=== PATIENT | female | born 1990 ===

== ENCOUNTER 2020-10-02 17:50 | Emergency (ER) | payer SELFPAY ==
[2020-10-02] MEDS ORDERED: IBUPROFEN 600 MG TAB PO ONE ×2 (17:59→18:09)
[2020-10-02 19:51] LABS: HCG Qualitative,Urine Negative (Negative)
[2020-10-02 19:54] LABS: Bilirubin,Urine NEG (Negative); Blood,Urine MOD (Negative); Color,Urine Yellow (Yellow); Urobilinogen,Urine < 2.0 mg/dL (<2.0)
[2020-10-02 19:55] LABS: WBC,Urine > 182.0 /HPF (0.0-6.0)
[2020-10-02] MEDS ORDERED: SODIUM CHLORIDE 0.9% 1000 ML 2,000 ML IV ONE (20:58)
[2020-10-02] MEDS ORDERED: cefTRIAXone/NS 1 GM/50 ML 1 GM/50 ML BAG IV ONE (21:03)
--- NOTE | 2020-10-02 21:04 | Emergency Department Report ---
ED Female HPI - General Chief complaint: Urogenital-Female Stated complaint: BACK PAIN Time Seen by Provider: 10/02/20 20:55 Source: patient Mode of arrival: Ambulatory Limitations: No Limitations - History of Present Illness Initial comments: The patient was evaluated in the emergency department for symptoms described in the history of present illness. He/she was evaluated in the context of the global COVID-19 pandemic, which necessitated consideration that the patient might be at risk for infection with the virus that causes COVID-19. Institu tional protocols and algorithms that pertain to the evaluation of patients at risk for COVID-19 are in a state of rapid change based on information released by regulatory bodies including the CDC and federal and state organizations. These policies and algorithms were followed during the patient's care in the emergency department. Please note that these policies, procedures and recommendations changed on a rapid basis. 30-year-old female presents to the emergency room for 2-week history of right upper quadrant pain fever dark urine nausea but no vomiting. Patient states that she was treated in April for urinary tract infection. Patient denies any dysuria hematuria vaginal discharge. It was noted that patient had an elevated temperature of 101.4. She was mildly tacky at 100. Onset/Timin -: week(s) Severity scale (0 -10): 9 Quality: sharp Consistency: constant Improves with: none Are you Now?: No Associated Symptoms: nausea/vomiting (No vomiting), fever/chills. denies: vaginal discharge, vaginal bleeding, loss of appetite, dysuria, hematuria - Related Data Allergies Allergy/AdvReac Type Severity Reaction Status Date / Time No Known Allergies Allergy Unverified 10/02/20 18:04 ED Review of Systems ROS: Stated complaint: BACK PAIN Other details as noted in HPI Comment: All other systems reviewed and negative ED Past Medical Hx - Past Medical History Previous Medical History?: No - Surgical History Past Surgical History?: No ED Physical Exam - General Limitations: No Limitations General appearance: alert, in distress - Head Head exam: Present: atraumatic, normocephalic - Eye Eye exam: Present: normal appearance, PERRL - ENT ENT exam: Present: mucous membranes moist - Neck Neck exam: Present: normal inspection, full ROM - Respiratory Respiratory exam: Absent: accessory muscle use - Cardiovascular Cardiovascular Exam: Present: tachycardia - GI/Abdominal GI/Abdominal exam: Present: soft, tenderness, guarding - Back Exam Back exam: Present: CVA tenderness (R) - Neurological Exam Neurological exam: Present: alert, oriented X3 - Psychiatric Psychiatric exam: Present: normal affect, normal mood - Skin Skin exam: Present: warm, dry, intact, normal color. Absent: rash ED Course Vital Signs 10/02/20 10/03/20 18:04 01:34 Temperature 101.4 F H 102.9 F H Pulse Rate 100 H 103 H Respiratory 18 17 Rate Blood Pressure 133/58 133/72 [Right] O2 Sat by Pulse 98 98 Oximetry - Reevaluation(s) Reevaluation #1: 10/03/20 01:34 Call was placed to [facility] that they are currently on MedSurg and ICU diversion. Call placed to either [facility] or [facility]. Reevaluation #3: 10/03/20 01:42 Chest informed that [facility] and [facility] are on diversion as well. Will reach out to [facility]. - Consultations Consultation #1: 10/03/20 02:[address] Dowell at [facility] he is has accepted ER to ER. 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 abd pain with nausea and fever. TECHNIQUE: Axial CT imaging of abdomen and pelvis was obtained with IV cont rast. Coronal and sagittal reformatted imaging obtained and reviewed. All CT scans at this location are performed using CT dose reduction for ALARA by means of automated exposure control. COMPARISON: None available. FINDINGS: CT abdomen with contrast demonstrates grossly normal appearance of the liver, spleen, pancreas, left kidney, and adrenal glands. Gallbladder appearance is unremarkable. No biliary dilatation. The right kidney is markedly enlarged. There is a staghorn calculus within the renal pelvis causing severe hydronephrosis. Calculus measures approximately 3 cm. There are additional smaller calculi throughout the lower pole calyces. No calculi are seen within the right ureter. There is mild inflammatory change surrounding the right renal hilum. CT pelvis with contrast does not demonstrate any mass, free fluid, or focal inflammatory change. IUD is present within the uterus and appears unremarkable. GI tract is within normal limits. Visualized lung bases are clear. No acute osseous abnormality. IMPRESSION: 1. Severe right hydronephrosis caused by a staghorn calculus. Additional smaller calculi are seen within the right kidney. Although rare, x anthogranulomatous pyelonephritis is within the differential. Signer Name: Myla Erickson MD Signed: 10/02/2020 11:33 PM Workstation Name: [id number] - Medical Decision Making 30-year-old female presents to the emergency room for 2-week history of right upper quadrant pain fever dark urine nausea but no vomiting. Patient states that she was treated in April for urinary tract infection. Patient denies any dysuria hematuria vaginal discharge. It was noted that patient had an elevated temperature of 101.4. She was mildly tacky at 100. It was noted that patient had elevated WBCs of greater than 182 and urine. 100 protein, large amount of leukoesterase. CT scan was ordered shows that patient has a right hydronephrosis from a staghorn calculi with multiple calculi in the right kidney as well as the left kidney. Spoke to my attending Dr. Woodall. He recommends the patient be transferred out to the appropriate hospital with a urologist. This provider has had to call 5 hospitals which were all on diversion and spoke to [facility] Dr. Dowell and he has accepted patient to ER to ER. Paperwork was provided to nursing staff Dr. Pollard signed transfer paper. Request for CT scanning to be placed on this. Ordered another round of normal saline which were equal 3 L, Rocephin 1 g IV, patient's had ibuprofen, acetaminophen and now will be given Dilaudid 0.5 and Toradol 30 mg for pain management. Critical Care Time: Yes Critical care time in (mins) excluding proc time.: 35 Critical care attestation.: If time is entered above; I have spent that time in minutes in the direct care of this critically ill patient, excluding procedure time. ED Disposition Clinical Impression: Pyelonephritis, Kidney calculi Hydronephrosis Qualifiers: Hydronephrosis type: with renal calculous obstruction Qualified Code(s): N13.2 - Hydronephrosis with renal and ureteral calculous obstruction Disposition: DC/TX-70 ANOTHER TYPE HLTHCARE Is pt being admited?: Yes Does the pt Need Aspirin: No Condition: Stable Instructions: Hydronephrosis Referrals: ROMERO MENJIVAR MD [Primary Care Provider] - 3-5 Days
[2020-10-02 21:46] LABS: Basophils % (Auto) 0.4 % (0.0-1.8); Eosinophils # (Auto) 0.1 K/mm3 (0.0-0.4); Eosinophils % (Auto) 0.9 % (0.0-4.3); Hemoglobin 9.8 gm/dl (10.1-14.3); Lymphocytes # (Auto) 1.3 K/mm3 (1.2-5.4); Lymphocytes % (Auto) 11.4 % (13.4-35.0); Mean Corpuscular HGB Conc 34 % (30-34); Mean Corpuscular Volume 82 fl (79-97); Monocytes # (Auto) 0.8 K/mm3 (0.0-0.8); Monocytes % (Auto) 7.6 % (0.0-7.3); Platelet Count 369 K/mm3 (140-440); Red Blood Count 3.55 M/mm3 (3.65-5.03); Red Cell Distribution Width 16.3 % (13.2-15.2)
[2020-10-02 21:58] LABS: Alanine Aminotransferase 17 units/L (7-56); Albumin 3.3 g/dL (3.9-5); BUN/Creatinine Ratio 14; Blood Urea Nitrogen 14 mg/dL (7-17); Calcium 8.9 mg/dL (8.4-10.2); Hemolysis Index 5
[2020-10-02] MEDS ORDERED: traMADol 50 MG TAB PO ONE (22:56)
[2020-10-02] MEDS ORDERED: MORPHINE 2 MG/1 ML INJ IV ONE (23:12)
--- NOTE | 2020-10-03 00:37 | Cat Scan Report ---
CT abdomen pelvis w con INDICATION / CLINICAL INFORMATION: Pt complains of R.U.Q. abd pain with nausea and fever. TECHNIQUE: Axial CT imaging of abdomen and pelvis was obtained with IV contrast. Coronal and sagittal reformatte d imaging obtained and reviewed. All CT scans at this location are performed using CT dose reduction for ALARA by means of automated exposure control. COMPARISON: None available. FINDINGS: CT abdomen with contrast demonstrates grossly normal appearance of the liver, spleen, pancreas, left kidney, and adrenal glands. Gallbladder appearance is unremarkable. No biliary dilatation. The right kidney is markedly enlarged. There is a staghorn calculus within the renal pelvis causing s evere hydronephrosis. Calculus measures approximately 3 cm. There are additional smaller calculi thro ughout the lower pole calyces. No calculi are seen within the right ureter. There is mild inflammator y change surrounding the right renal hilum. CT pelvis with contrast does not demonstrate any mass, free fluid, or focal inflammatory change. IUD is present within the uterus and appears unremarkable. GI tract is within normal limits. Visualized lung bases are clear. No acute osseous abnormality. IMPRESSION: 1. Severe right hydronephrosis caused by a staghorn calculus. Additional smaller calculi are seen wit hin the right kidney. Although rare, xanthogranulomatous pyelonephritis is within the differential. Signer Name: Myla Erickson MD Signed: 10/03/2020 12:33 AM Workstation Name: [id number]
[2020-10-03] MEDS ORDERED: ACETAMINOPHEN 325 MG TAB PO ONE (01:34)
[2020-10-03] MEDS ORDERED: HYDROmorphone 1 MG/1 ML INJ IV ONE ×2 (02:30→07:19)
[2020-10-03] MEDS ORDERED: SODIUM CHLORIDE 0.9% 1000 ML 1,000 ML IV ONE (02:30)
[2020-10-03] MEDS ORDERED: KETOROLAC 30 MG/1 ML INJ IV ONE (02:30)
[2020-10-03 07:03] VITALS: BP 105/64
== END 2020-10-03 07:35 | disposition other institution (70) ==
LOC: ED 17:50
DX: N12 Tubulo-interstitial nephritis, not specified as acute or chronic (principal); N13.2 Hydronephrosis with renal and ureteral calculous obstruction
CPT/HCPCS: 36415; 74177; 80053; 81001; 81025; 82140; 85025; 87040; 96361; 96365; 96375; 96376; 99291; J0696; J1170; J1885; J2270; J7030; Q9967

== ENCOUNTER 2020-10-05 22:29 | Emergency (ER) | payer SELFPAY ==
[2020-10-05 23:34] LABS: Alanine Aminotransferase 37 units/L (7-56); Albumin 3.3 g/dL (3.9-5); BUN/Creatinine Ratio 18; Basophils % (Auto) 0.4 % (0.0-1.8); Blood Urea Nitrogen 14 mg/dL (7-17); Calcium 9.2 mg/dL (8.4-10.2); Eosinophils # (Auto) 0.1 K/mm3 (0.0-0.4); Eosinophils % (Auto) 1.6 % (0.0-4.3); Hematocrit 31.2 % (30.3-42.9); Hemoglobin 10.2 gm/dl (10.1-14.3); Hemolysis Index 0; Lymphocytes # (Auto) 1.3 K/mm3 (1.2-5.4); Lymphocytes % (Auto) 14.7 % (13.4-35.0); Mean Corpuscular HGB Conc 33 % (30-34); Mean Corpuscular Volume 81 fl (79-97); Monocytes # (Auto) 0.8 K/mm3 (0.0-0.8); Monocytes % (Auto) 9.3 % (0.0-7.3); Platelet Count 448 K/mm3 (140-440); Red Blood Count 3.85 M/mm3 (3.65-5.03); Red Cell Distribution Width 16.3 % (13.2-15.2)
[2020-10-06 00:41] LABS: Bilirubin,Urine NEG (Negative); Blood,Urine MOD (Negative); Color,Urine Yellow (Yellow); Urobilinogen,Urine < 2.0 mg/dL (<2.0)
[2020-10-06 00:42] LABS: WBC,Urine > 182.0 /HPF (0.0-6.0)
[2020-10-06] MEDS ORDERED: IBUPROFEN 800 MG TAB ONE (03:15)
[2020-10-06] MEDS ORDERED: ONDANSETRON 4 MG ODT TAB ONE (03:15)
[2020-10-06] MEDS ORDERED: IBUPROFEN 800 MG TAB PO ONE (03:20)
[2020-10-06] MEDS ORDERED: ONDANSETRON 4 MG ODT TAB PO ONE (03:21)
[2020-10-06 06:49] VITALS: BP 111/72
[2020-10-06 07:03] LABS: HCG Qualitative,Urine Negative (Negative)
[2020-10-06] MEDS ORDERED: HYDROmorphone 1 MG/1 ML INJ IV ONE (07:10)
[2020-10-06] MEDS ORDERED: PANTOPRAZOLE 40 MG INJ IV ONE (07:11)
--- NOTE | 2020-10-06 07:11 | Emergency Department Report ---
ED General Adult HPI - General Chief complaint: Abdominal Pain Stated complaint: ABD PAIN PUI?: No Time Seen by Provider: 10/06/20 06:58 Source: patient, EMS (EMS documentation is reviewed and appreciated), RN notes reviewed, old records reviewed Mode of arrival: Wheelchair Limitations: No Limitations - History of Present Illness Initial comments: The patient was evaluated in the emergency department for symptoms described in the history of present illness. He/she was evaluated in the context of the global COVID-19 pandemic, which necessitated consideration that the patient might be at risk for infection with the virus that causes COVID-19. Institutional protocols and algorithms that pertain to the evaluation of patien ts at risk for COVID-19 are in a state of rapid change based on information released by regulatory bodies including the CDC and federal and state organizations. These policies and algorithms were followed during the patient's care in the emergency department. Please note that these policies, procedures and recommendations changed on a rapid basis. Patient is a 30-year-old female. She was recently seen at this hospital a few days ago for right-sided pyelonephritis, systemic inflammatory response syndrome, hydronephrosis, an obstructing staghorn calculus. Due to lack of urologic specialty services available at this facility, patient was transferred to [facility]. Patient reports to me that she had a stent placed in the right kidney. She thinks that she stayed overnight, and then was discharged. She was discharged with cefdinir. She has been taking her cefdinir. She has not been given a prescription for pain medication. She also reports a history of gastritis. She presents to the ER with a complaint of epigastric pain. This pain started on Wednesday. There is no headache, neck pain, chest pain. She also has persistent right flank pain. She has mild dysuria. No nausea or vomiting. No diarrhea. States that she is not . Pain is sharp. It increases with p alpation. It decreases with rest. Does not really move anywhere. During the history and physical examination, I am chaperoned by [employer] architect Aleyda Jain -: days(s) Location: abdomen Radiation: non-radiation Severity scale (0 -10): 10 Consistency: constant Improves with: medication, rest Worsens with: movement - Related Data Previous Rx's Medication Instructions Recorded Last Taken Type Acetaminophen [Non-Aspirin Extra 500 mg PO Q6HR PRN #30 tablet 10/06/20 Unknown Rx Strength] Amoxicillin/Potassium Clav 1 each PO BID #19 tablet 10/06/20 Unknown Rx [Augmentin 875-125 Tablet] Famotidine [Pepcid] 20 mg PO BID #60 tablet 10/06/20 Unknown Rx Morphine Sulfate [Morphine Sulfate 7.5 mg PO Q6HR PRN #10 tablet 10/06/20 Unknown Rx IR] Ondansetron [Zofran Odt] 4 mg PO Q8HR PRN #20 tab.rapdis 10/06/20 Unknown Rx Oxybutynin [Ditropan] 5 mg PO TID PRN #15 tab 10/06/20 Unknown Rx Allergies Allergy/AdvReac Type Severity Reaction Status Date / Time No Known Allergies Allergy Unverified 10/02/20 18:04 ED Review of Systems ROS: Stated complaint: ABD PAIN Other details as noted in HPI Constitutional: denies: fever Eyes: denies: eye discharge ENT: denies: epistaxis Respiratory: denies: cough Cardiovascular: denies: chest pain Gastrointestinal: abdominal pain Genitourinary: dysuria Musculoskeletal: back pain Skin: denies: lesions Neurological: weakness Hematological/Lymphatic: denies: easy bleeding ED Past Medical Hx - Social History Smoking Status: Never Smoker Substance Use Type: None - Medications Home Medications: Home Medications Medication Instructions Recorded Confirmed Last Taken Type Acetaminophen [Non-Aspirin Extra 500 mg PO Q6HR PRN #30 tablet 10/06/20 Unknown Rx Strength] Amoxicillin/Potassium Clav 1 each PO BID #19 tablet 10/06/20 Unknown Rx [Augmentin 875-125 Tablet] Famotidine [Pepcid] 20 mg PO BID #60 tablet 10/06/20 Unknown Rx Morphine Sulfate [Morphine Sulfate 7.5 mg PO Q6HR PRN #10 tablet 10/06/20 Unknown Rx IR] Ondansetron [Zofran Odt] 4 mg PO Q8HR PRN #20 tab.rapdis 10/06/20 Unknown Rx Oxybutynin [Ditropan] 5 mg PO TID PRN #15 tab 10/06/20 Unknown Rx ED Physical Exam - General Limitations: No Limitations General appearance: alert, in no apparent distress - Head Head exam: Present: atraumatic, normocephalic - Eye Eye exam: Present: normal appearance, EOMI. Absent: nystagmus - ENT ENT exam: Present: normal exam, normal orophraynx, mucous membranes moist, normal external ear exam - Neck Neck exam: Present: normal inspection, full ROM. Absent: tenderness, meningismus - Respiratory Respiratory exam: Present: normal lung sounds bilaterally. Absent: respiratory distress, wheezes, rales, rhonchi, stridor, decreased breath sounds - Cardiovascular Cardiovascular Exam: Present: regular rate, normal rhythm, normal heart sounds. Absent: bradycardia, tachycardia, irregular rhythm, systolic murmur, diastolic murmur, rubs, gallop - GI/Abdominal GI/Abdominal exam: Present: soft, tenderness, normal bowel sounds, other (There is epigastric tenderness. There is right flank tenderness.). Absent: distended, guarding, rebound, rigid, pulsatile mass - Extremities Exam Extremities exam: Present: normal inspection, full ROM, other (2+ pulses noted in the bilateral upper and lower extremities. There is no palpable cord. negative Homans sign. Muscular compartments are soft. The pelvis is stable.). Absent: pedal edema, calf tenderness - Back Exam Back exam: Present: normal inspection, CVA tenderness (R). Absent: tenderness, CVA tenderness (L), paraspinal tenderness, vertebral tenderness - Neurological Exam Neurological exam: Present: alert, other (No facial droop. Tongue midline. Extraocular movements intact bilaterally. Facial sensation intact to light touch in V1, V2, V3 distribution bilaterally. 5 and a 5 strength in 4 extremities. Sensation intact to light touch in 4 extremities.) - Psychiatric Psychiatric exam: Present: normal affect, normal mood - Skin Skin exam: Present: warm, dry, intact, normal color. Absent: rash ED Course Vital Signs 10/05/20 10/06/20 22:40 06:48 Temperature 99.3 F 98.0 F Pulse Rate 94 H 79 Respiratory 16 18 Rate Blood Pressure 128/72 111/72 [Right] O2 Sat by Pulse 99 99 Oximetry - Reevaluation(s) Reevaluation #1: 10/06/20 07:41 Differential diagnosis, including but not limited to: Gastritis, pancreatitis, ureteral spasm, pyelonephritis, stent obstruction, urinoma, stent colic Assessment and plan: 30-year-old female status post urologic stenting, with epigastric pain, and persistent right flank pain. Check basic laboratory studies, treat her pain, placed on monitor and storage bin tender and pulse ox, attempt to obtain old medical records, obtain CT scan of the abdomen pelvis with and without IV contrast, and reassess. Have discussed this plan of care with the patient, who verbalized understanding, who gives consent for the aforementioned recommendations Reevaluation #2: 10/06/20 08:[address] Fe[address] scan of the abdomen pelvis is reviewed and appreciated. Apparently, the urologist who placed the patient's stent is a Dr. Fernando Fuentes MD [address] [facility], [place] [address] (Directions) [phone] 2.[address] miles [facility] [address] [place] [address] (Directions) We will have the company secretary reach out to him, and page. Would like to discuss CT scan findings, and appropriate plan of care. Specific question is if patient is having persistent hydronephrosis in the context of stent placement, is percutaneous nephrostomy indicated. Reevaluation #3: 10/06/20 09:10 I received call back from [facility], Dr. Mikel Last MD He is a colleague of the patient's urologist of record. I discussed the patient's history, physical, pertinent laboratory studies and imaging studies from today, and from last week. He has also reviewed the patient's medical records and culture results. He advises that staghorn calculi typically take over a year to form. He also advises that secondary to double-J stent being in place, when the patient attempts to void, there will be some reflux of urine proximally. Therefore, placement of the double-J stent, in conjunction with long-term presence of staghorn calculi is the most likely reason for patient's persistent hydronephrosis. He advises that outpatient management is appropriate. I agree with this. He does recommend oxybutynin, 5 mg, 3 times daily, as needed bladder spasm. He also has reviewed the patient's culture results, and indicates ESBL, sensitive to Augmentin. We will therefore discontinue cefdinir, and initiate Augmentin therapy, with first dose of antibiotic to be given in this emergency room. I will also discharge the patient with pain medication, nausea medication in addition to the aforementioned medications, as she was not discharged with pain medication by her history. This patient has been observed in the emergency room for approximately 12 hours without clinical decompensation. She is afebrile with reassuring vital signs, feels improved, and is tolerating liquid feeds. She is therefore suitable for outpatient management at this time. Reevaluation #4: 10/06/20 13:16 Medical records have arrived. Patient had right ureteral stent placed, remained stable, and "ready for discharge from urologist and clinical standpoint." In addition, they documented that "attempts were made to get an appointment to follow-up with urologist in [place] for stone extraction but [place] [facility] insisted on patient calling by herself for the appointment. She was subsequently discharged on oral cefdinir for 10 days, with plan to review the culture sensitivity when available, and contact patient if any adjustment is necessary. She was instructed to call urology for follow-up appointment. She voiced understanding and agreed with the overall plan." ED Medical Decision Making - Lab Data Result diagrams: 10/05/20 22:54 10/05/20 22:54 Vital Signs 10/05/20 10/06/20 22:40 06:48 Temperature 99.3 F 98.0 F Pulse Rate 94 H 79 Respiratory 16 18 Rate Blood Pressure 128/72 111/72 [Right] O2 Sat by Pulse 99 99 Oximetry Lab Results 10/05/20 10/05/20 10/06/20 Range/Units 22:54 22:54 Unknown WBC 8.9 (4.5-11.0) K/mm3 RBC 3.85 (3.65-5.03) M/mm3 Hgb 10.2 (10.1-14.3) gm/dl Hct 31.2 (30.3-42.9) % MCV 81 (79-97) fl MCH 27 L (28-32) pg MCHC 33 (30-34) % RDW 16.3 H (13.2-15.2) % Plt Count 448 H (140-440) K/mm3 Lymph % (Auto) 14.7 (13.4-35.0) % [place] % (Auto) 9.3 H (0.0-7.3) % Eos % (Auto) 1.6 (0.0-4.3) % Baso % (Auto) 0.4 (0.0-1.8) % Lymph # (Auto) 1.3 (1.2-5.4) K/mm3 [place] # (Auto) 0.8 (0.0-0.8) K/mm3 Eos # (Auto) 0.1 (0.0-0.4) K/mm3 Baso # (Auto) 0.0 (0.0-0.1) K/mm3 Seg Neutrophils % 74.0 H (40.0-70.0) % Seg Neutrophils # 6.6 (1.8-7.7) K/mm3 Sodium 135 L (137-145) mmol/L Potassium 3.8 (3.6-5.0) mmol/L Chloride 100.2 (98-107) mmol/L Carbon Dioxide 22 (22-30) mmol/L Anion Gap 17 mmol/L BUN 14 (7-17) mg/dL Creatinine 0.8 (0.6-1.2) mg/dL Estimated GFR > 60 ml/min BUN/Creatinine Ratio 18 % Glucose 96 (65-100) mg/dL Calcium 9.2 (8.4-10.2) mg/dL Total Bilirubin 0.20 (0.1-1.2) mg/dL AST 31 (5-40) units/L ALT 37 (7-56) units/L Alkaline Phosphatase 158 H (35-129) units/L Total Protein 8.1 (6.3-8.2) g/dL Albumin 3.3 L (3.9-5) g/dL Albumin/Globulin Ratio 0.7 % Urine Color Yellow (Yellow) Urine Turbidity Cloudy (Clear) Urine pH 8.0 H (5.0-7.0) Ur Specific [place] 1.006 (1.003-1.030) Urine Protein 30 mg/dl (Negative) mg/dL Urine Glucose (UA) Neg (Negative) mg/dL Urine Ketones Neg (Negative) mg/dL Urine Blood Mod (Negative) Urine Nitrite Neg (Negative) Urine Bilirubin Neg (Negative) Urine Urobilinogen < 2.0 (<2.0) mg/dL Ur Leukocyte Esterase Lg (Negative) Urine WBC (Auto) > 182.0 H (0.0-6.0) /HPF Urine RBC (Auto) 75.0 (0.0-6.0) /HPF U Epithel Cells (Auto) 4.0 (0-13.0) /HPF Urine WBC Clumps 3+ /HPF Urine HCG, Qual (Negative) 10/06/20 Range/Units Unknown WBC (4.5-11.0) K/mm3 RBC (3.65-5.03) M/mm3 Hgb (10.1-14.3) gm/dl Hct (30.3-42.9) % MCV (79-97) fl MCH (28-32) pg MCHC (30-34) % RDW (13.2-15.2) % Plt Count (140-440) K/mm3 Lymph % (Auto) (13.4-35.0) % [place] % (Auto) (0.0-7.3) % Eos % (Auto) (0.0-4.3) % Baso % (Auto) (0.0-1.8) % Lymph # (Auto) (1.2-5.4) K/mm3 [place] # (Auto) (0.0-0.8) K/mm3 Eos # (Auto) (0.0-0.4) K/mm3 Baso # (Auto) (0.0-0.1) K/mm3 Seg Neutrophils % (40.0-70.0) % Seg Neutrophils # (1.8-7.7) K/mm3 Sodium (137-145) mmol/L Potassium (3.6-5.0) mmol/L Chloride (98-107) mmol/L Carbon Dioxide (22-30) mmol/L Anion Gap mmol/L BUN (7-17) mg/dL Creatinine (0.6-1.2) mg/dL Estimated GFR ml/min BUN/Creatinine Ratio % Glucose (65-100) mg/dL Calcium (8.4-10.2) mg/dL Total Bilirubin (0.1-1.2) mg/dL AST (5-40) units/L ALT (7-56) units/L Alkaline Phosphatase (35-129) units/L Total Protein (6.3-8.2) g/dL Albumin (3.9-5) g/dL Albumin/Globulin Ratio % Urine Color (Yellow) Urine Turbidity (Clear) Urine pH (5.0-7.0) Ur Specific [place] (1.003-1.030) Urine Protein (Negative) mg/dL Urine Glucose (UA) (Negative) mg/dL Urine Ketones (Negative) mg/dL Urine Blood (Negative) Urine Nitrite (Negative) Urine Bilirubin (Negative) Urine Urobilinogen (<2.0) mg/dL Ur Leukocyte Esterase (Negative) Urine WBC (Auto) (0.0-6.0) /HPF Urine RBC (Auto) (0.0-6.0) /HPF U Epithel Cells (Auto) (0-13.0) /HPF Urine WBC Clumps /HPF Urine HCG, Qual Negative (Negative) - Radiology Data Radiology results: report reviewed, image reviewed Print Report Referring Physician: THOMAS LOAIZA Patient Name: JEB KAUR Date of : 1990 Sex: Female Report Date: 2020-10-03 Report Status: Finalized Findings [facility] [address] [id number] Cat Scan Report Signed Patient: JEB KAUR MR#: [id number] : 1990 Acct:[id number] Age/Sex: 30 / F ADM Date: 10/02/20 Loc: ED Attending Dr: Ordering Physician: ALIA ROSALES Date of Service: 10/02/20 Procedure(s): CT abdomen pelvis w con Accession Number(s): [id number] cc: ALIA ROSALES CT abdomen pelvis w con INDICATION / CLINICAL INFORMATION: Pt complains of R.U.Q. abd pain with nausea and fever. TECHNIQUE: Axial CT imaging of abdomen and pelvis was obtained with IV contrast. Coronal and sagittal reformatted imaging obtained and reviewed. All CT scans at this location are performed using CT dose reduction for ALARA by means of automated exposure con trol. COMPARISON: None available. FINDINGS: CT abdomen with contrast demonstrates grossly normal appearance of the liver, spleen, pancreas, left kidney, and adrenal glands. Gallbladder appearance is unremarkable. No biliary dilatation. The right kidney is markedly enlarged. There is a staghorn calculus within the renal pelvis causing severe hydronephrosis. Calculus measures approximately 3 cm. There are additional smaller calculi throughout the lower pole calyces. No calculi are seen within the right ureter. There is mild inflammatory change surrounding the right renal hilum. CT pelvis with contrast does not demonstrate any mass, free fluid, or focal inflammatory change. IUD is present within the uterus and appears unremarkable. GI tract is within normal limits. Visualized lung bases are clear. No acute osseous abnormality. IMPRESSION: 1. Severe right hydronephrosis caused by a staghorn calculus. Additional smaller calculi are seen within the right kidney. Although rare, xanthogranulomatous pyelonephritis is within the differential. Signer Name: Myla Erickson MD Signed: 10/03/2020 12:33 AM Workstation Name: [id number] Print Report Referring Physician: NAKITA HOPPER Patient Name: AMANDO KAUR Date of : 1990 Sex: Female Report Date: 2020-10-06 Report Status: Finalized Findings [place] [id number] Cat Scan Report Signed Patient: AMANDO KAUR MR#: [id number] : 1990 Acct:[id number] Age/Sex: 30 / F ADM Date: 10/05/20 Loc: ED Attending Dr: Ordering Physician: NAKITA HOPPER MD Date of Service: 10/06/20 Procedure(s): CT abdomen pelvis wo/w con Accession Number(s): [id number] cc: NAKITA HOPPER MD CT ABDOMEN AND PELVIS WITHOUT AND WITH CONTRAST INDICATION / CLINICAL INFORMATION: MAIN. Abdominal pain concern for kidney stones. TECHNIQUE: Axial CT images were obtained through the abdomen and pelvis before and after IV contrast. All CT scans at this location are performed using CT dose reduction for ALARA by means of automated exposure control. COMPARISON: 10/03/2020 FINDINGS: LOWER CHEST: No significant abnormality. LIVER: No significant abnormality. GALLBLADDER: No significant abnormality. BILE DUCTS: No significant abnormality. PANCREAS: No significant abnormality. SPLEEN: No significant abnormality. ADRENALS: No significant abnormality. RIGHT KIDNEY / URETER: Interval placement of right-sided JJ ureteral stent with tips curled in the renal pelvis and bladder. There has been minimal improvement of the previously noted right-sided hydronephrosis predominantly within the superior pole pelvicalyceal system while the other calyces are relatively unchanged. The previously noted staghorn stone burden has not significantly changed, the largest stone in the renal pelvis measuring 3.6 x 1.9 cm. LEFT KIDNEY / URETER: No significant abnormality. STOMACH / SMALL BOWEL: No significant abnormality. COLON: No significant abnormality. APPENDIX: No significant abnormality. PERITONEUM: No free fluid. No free air. No fluid collection. LYMPH NODES: No significant adenopathy. AORTA / ARTERIES: No significant abnormality. IVC / VEINS: No significant abnormality. URINARY BLADDER: Distended urinary bladder. No evidence of calcified stone burden. REPRODUCTIVE ORGANS: IUD in place within the endometrial canal. ADDITIONAL FINDINGS: None. SKELETAL SYSTEM: No significant abnormality. IMPRESSION: 1. Interval placement of right-sided JJ ureteral stent in appropriate position with minimal improvement of superior pelvicalyceal hydronephrosis. The previously noted staghorn stone burden and hydronephrosis of the remaining calyces is similar. Superimposed infectious process as described in the prior report should be considered. Signer Name: Edward Ochoa MD Signed: 10/06/2020 8:29 AM Workstation Name: [id number] Transcribed By: Dictated By: EDWARD OCHOA Electronically Authenticated By: EDWARD OCHOA Signed Date/Time: 10/06/20828 DD/ 7 TD/TT: Critical care attestation.: If time is entered above; I have spent that time in minutes in the direct care of this critically ill patient, excluding procedure time. ED Disposition Clinical Impression: S/P ureteral stent placement, Kidney calculi, Epigastric abdominal pain Hydronephrosis Qualifiers: Hydronephrosis type: unspecified Qualified Code(s): N13.30 - Unspecified hydronephrosis Disposition: - TO HOME OR SELFCARE Is pt being admited?: No Does the pt Need Aspirin: No Condition: Stable Instructions: Abdominal Pain (ED) Additional Instructions: Do not take metformin medication for the next 2 days, if patient takes this medication. Please drink at least 4 cups of water per day. Please discontinue cefdinir antibiotics. Cultures from [facility] indicated sensitivity to Augmentin, and resistance to the aforementioned antibiotic. Patient will be given first dose of Augmentin while here in the emergency room, and discharged with a 10-day prescription. Avoid consumption of Motrin, ibuprofen, Naprosyn, Aleve, heavy, spicy foods and alcohol. Take the morphine medication or Tylenol medication as needed for pain. Take the Zofran medication as needed for nausea. Take the antibiotics as directed. Take the oxybutynin medication as needed for sensation of bladder spasm. Cultures were sent today, results will be available in the next 3 to 5 days. Please have your primary care doctor or urologist contact the medical records department to obtain culture results. Please follow-up with a primary care doctor or urologist, preferably a urologist, within the next 3 to 5 days. For the patient's convenience, local urology specialists have been listed. Please return to the emergency room right away with new pain, worsened pain, migration of pain, projectile vomiting, change in mental status, confusion, inability to tolerate liquid feeds, new, worsened or different symptoms not present on the initial emergency room evaluation. No tome el medicamento de metformina marie los prximos 2 ramos, si el paciente oziel harriett medicamento. Zandra al menos 4 tazas de agua al da. Suspenda los antibiticos cefdinir. Los cultivos de [place] indicaron sensibilidad a Augmentin y resistencia al antibitico antes mencionado. Al paciente se le administrar la primera dosis de Augmentin mientras est en la douglas de emergencias y se le gomez de yanick con vicky receta de 10 ramos. Evite el consumo de Motrin, ibuprofeno, Naprosyn, Aleve, comidas pesadas y picantes y alcohol. [place] el medicamento de morfina o el medicamento Tylenol segn sea necesario para el dolor. [place] el medicamento Zofran segn sea necesario para las nuseas. [place] los antibiticos segn las indicaciones. [place] el medicamento de oxibutinina segn sea necesario para la sensacin de espasmo de la vejiga. Los cultivos se enviaron hoy, los resultados estarn disponibles en los prximos 3 a 5 ramos. [place] a mandel mdico de atencin primaria o urlogo que se comunique con el departamento de registros mdicos para obtener los resultados del cultivo. [place] un seguimiento con un mdico de atencin primaria o un urlogo, preferiblemente un urlogo, dentro de los prximos 3 a 5 ramos. Para comodidad del paciente, se pradhan incluido los especialistas en urologa locales. Regrese a la douglas de emergencias de inmediato con dolor nuevo, empeoramiento del dolor, migracin del dolor, vmitos en proyectil, cambio en el estado mental, confusin, incapacidad para tolerar alimentos lquidos, sntomas nuevos, empeorados o diferentes que no estn presentes en la evaluacin inicial de la douglas de emergencias. Prescriptions: Amoxicillin/Potassium Clav [Augmentin 875-125 Tablet] 1 each PO BID #19 tablet Oxybutynin [Ditropan] 5 mg PO TID PRN #15 tab PRN Reason: Spasms Morphine Sulfate [Morphine Sulfate IR] 7.5 mg PO Q6HR PRN #10 tablet PRN Reason: Pain , Severe (7-10) Acetaminophen [Non-Aspirin Extra Strength] 500 mg PO Q6HR PRN #30 tablet PRN Reason: Pain , Severe (7-10) Famotidine [Pepcid] 20 mg PO BID #60 tablet Ondansetron [Zofran Odt] 4 mg PO Q8HR PRN #20 tab.rapdis PRN Reason: Nausea Referrals: JOSE MARTIN STEWART MD [Staff Physician] - 3-5 Days [facility] [Provider Group] - 3-5 Days Forms: Work/School Release Form(ED)
--- NOTE | 2020-10-06 08:33 | Cat Scan Report ---
CT ABDOMEN AND PELVIS WITHOUT AND WITH CONTRAST INDICATION / CLINICAL INFORMATION: MAIN. Abdominal pain concern for kidney stones. TECHNIQUE: Axial CT images were obtained through the abdomen and pelvis before and after IV contrast. All CT sc ans at this location are performed using CT dose reduction for ALARA by means of automated exposure c ontrol. COMPARISON: 10/03/2020 FINDINGS: LOWER CHEST: No significant abnormality. LIVER: No significant abnormality. GALLBLADDER: No significant abnormality. BILE DUCTS: No significant abnormality. PANCREAS: No significant abnormality. SPLEEN: No significant abnormality. ADRENALS: No significant abnormality. RIGHT KIDNEY / URETER: Interval placement of right-sided JJ ureteral stent with tips curled in the re nal pelvis and bladder. There has been minimal improvement of the previously noted right-sided hydron ephrosis predominantly within the superior pole pelvicalyceal system while the other calyces are rela tively unchanged. The previously noted staghorn stone burden has not significantly changed, the large st stone in the renal pelvis measuring 3.6 x 1.9 cm. LEFT KIDNEY / URETER: No significant abnormality. STOMACH / SMALL BOWEL: No significant abnormality. COLON: No significant abnormality. APPENDIX: No significant abnormality. PERITONEUM: No free fluid. No free air. No fluid collection. LYMPH NODES: No significant adenopathy. AORTA / ARTERIES: No significant abnormality. IVC / VEINS: No significant abnormality. URINARY BLADDER: Distended urinary bladder. No evidence of calcified stone burden. REPRODUCTIVE ORGANS: IUD in place within the endometrial canal. ADDITIONAL FINDINGS: None. SKELETAL SYSTEM: No significant abnormality. IMPRESSION: 1. Interval placement of right-sided JJ ureteral stent in appropriate position with minimal improveme nt of superior pelvicalyceal hydronephrosis. The previously noted staghorn stone burden and hydroneph rosis of the remaining calyces is similar. Superimposed infectious process as described in the prior report should be considered. Signer Name: Edward Cole MD Signed: 10/06/2020 8:29 AM Workstation Name: [id number]
[2020-10-06] MEDS ORDERED: AMOXICILLIN/K CLAV 875/125MG TAB PO ONE (09:09)
== END 2020-10-06 09:51 | disposition home or self-care (01) ==
LOC: ED 22:29
DX: N13.30 Unspecified hydronephrosis (principal); N20.0 Calculus of kidney; Z79.899 Other long term (current) drug therapy
CPT/HCPCS: 36415; 74178; 80053; 81001; 81025; 82550; 83690; 83735; 85025; 87086; 96374; 96375; 99285; C9113; J1170; Q9967; Q0162